=== PATIENT | male | born 1990 | race Caucasian/White ===

== ENCOUNTER 2017-12-08 16:58 | Inpatient (IN) | payer OTHER ==
[~2017-12-08] VITALS: Ht 170.2 cm; Wt 81.6 kg
--- NOTE | 2017-12-08 16:58 | NUR ---
PT BIBS BLS TO BED 5
[2017-12-08 17:00] VITALS: BP 114/69
--- NOTE | 2017-12-08 17:10 | NUR ---
PER TAWER, PATIENT HITTING HEAD TO THE BATHROOM WALL TO HURT HIMSELF AND HEARING VOICES TO HURT HIMSELF TO BANG HEAD ON THE WALL. ABRASION TO OCCIPAL NO BLEEDING,ABRASION TO RT.UPPER EYEBROW. PATIENT CAME IN 4 POINTS RESTRAINTS IN ER. PATIENT CALM AND COOPERATIVE. RESTRAINTS TAKEN OUT. PER PATIENT,HE IS GETTING ATTENTION FROM GOD BECAUSE HE IS NOT TOLERABLE AT THIS TIME. HEARING VOICES IN TV THAT PEOPLE TALKING TO HIM IN A SEXUAL WAY. STOPPED TAKING HALDOL BECAUSE GIVES HIM NIGHTMARE. HX: SCHIZOPHRENIA. FITO LARIOS PLACED PATIENT ON 5150 HOLD ,DTS,DTO; WAS PLACED ON 5150 BY FITO LARIOS
--- NOTE | 2017-12-08 17:40 | NUR ---
PT'S MOTHER AT BEDSIDE, PT CALM COOPERATIVE, NO AGGRESSIVE BEHAVIOUR NOTED AT THIS TIME. TECH GUERRERO AT BEDSIDE, FOUR POINT RESTRAINT WAS TAKEN OFF PER WOUND CARE PHYSICIAN OMA, WILL CONTINUE TO MONITOR.
[2017-12-08 17:43] LABS: BASOPHILS % (AUTO) 0.7 % (0.0-2.0); EOSINOPHILS # (AUTO) 0.1 K/uL (0-0.4); EOSINOPHILS % (AUTO) 1.1 % (0.0-4.0); HEMOGLOBIN 14.5 g/dL (12.0-18.0); LYMPHOCYTES # (AUTO) 1.2 K/uL (2.0-11.5); LYMPHOCYTES % (AUTO) 21.5 % (20.5-51.1); MEAN CORPUSCULAR HEMOGLOBIN 31 pg (27-31); MEAN CORPUSCULAR HGB CONC 35 g/dL (33-37); MEAN CORPUSCULAR VOLUME 90.1 fL (80-94); MONOCYTES # (AUTO) 0.5 K/uL (0.8-1.0); MONOCYTES % (AUTO) 8.6 % (1.7-9.3); NEUTROPHILS # (AUTO) 3.9 K/uL (1.8-7.7); NEUTROPHILS % (AUTO) 68.1 % (42.2-75.2); PLATELET COUNT (AUTO) 213 K/uL (140-450); RED BLOOD CELL COUNT(AUTO) 4.66 MIL/uL (4.20-6.10); RED CELL DISTRIBUTION WIDTH 13.4 % (11.6-13.7); WHITE BLOOD COUNT (AUTO) 5.7 K/uL (4.8-10.8)
--- NOTE | 2017-12-08 17:54 | NUR ---
TELEPSYCH CONSULT REQUEST SUBMITTED ONLINE FOR PT
[2017-12-08 17:57] LABS: ANION GAP 11.5 (8-16); CARBON DIOXIDE 25.3 mmol/L (21-32); CREATININE 0.9 mg/dL (0.7-1.3); POTASSIUM 3.8 mmol/L (3.5-5.1)
[2017-12-08 18:01] LABS: SALICYLATE < 2.8 mg/dL (2.8-20.0)
[2017-12-08 18:04] LABS: ALBUMIN 3.7 g/dL (3.4-5.0); TOTAL BILIRUBIN 0.3 mg/dL (0.0-1.0)
--- NOTE | 2017-12-08 18:05 | NUR ---
AAO COOPERATIVE PT TAKEN OFF THE UNIT VIA GURNEY BY ANDRE MORALES FOR CT OF THE HEAD, PT'S MOTHER REMAIN ON BED 5.
[2017-12-08 18:11] LABS: CREATINE KINASE MB 0.9 ng/mL (0-3.6)
--- NOTE | 2017-12-08 18:12 | NUR ---
PT BACK FROM CT, NO AGGRESSIVE BEHAVIOUR NOTED AT THIS TIME, MOTHER AT BEDSIDE, WILL CONTINUE TO MONITOR.
[2017-12-08] MEDS ORDERED: LORazepam 2 MG/ML VIAL IVP PRN (19:00)
--- NOTE | 2017-12-08 19:10 | NUR ---
RECEIVED REPORT FROM KRISTINE FORREST. TRANSFER OF CARE AT THIS TIME.
--- NOTE | 2017-12-08 19:15 | NUR ---
PATIENT RESTING AT THIS TIME. NO SIGNS OF DISTRESS.
[2017-12-08 19:30] LABS: BARBITURATE, URINE NEG. ng/ml (NEG <=200); BENZODIAZEPINE, URINE NEG. ng/mL (NEG <=200); CANNABINOID, URINE NEG. ng/mL (NEG <=50); COCAINE, URINE NEG. ng/mL (NEG <=300); OPIATE, URINE NEG. ng/mL (NEG <=2000); PHENCYCLIDINE SCREEN,URINE NEG. ng/mL (NEG <=25)
--- NOTE | 2017-12-08 19:30 | NUR ---
PT ARRIVED VIA WHEELCHAIR TO UNIT BY ER NURSE EMIR-ADRIANE. PT AOX2-PSYCHOSIS. PT AMBULATORY, ON ROOM AIR WITH IV SITE ON RIGHT AC #20G-SL. PT HAS MULTIPLE HEMATOMAS ON HEAD DUE TO HITTING SELF AND BANGING HEAD ON HOME BED FRAME ACCORDING TO MOTHER IVORY BAKER. LEFT INDEX FINGER HAS BLOODY BANDAID. BITE HEARD ON FA. BOTH HANDS ARE RED-IRRITATED. VITAL SIGNS TAKEN. NO S/S OF RESPIRATORY DISTRESS OR DISCOMFORT NOTED AT THIS TIME. MRSA SWAB COLLECTED. PT TOLERATED WELL. DISCUSSED PLAN OF CARE WITH MOTHER. MOTHER STATED PT HAS NOT BEEN TAKING MEDICATIONS AND WOULD LIKE HER SON TO BE PLACED IN A PSYCH FACILITY. PT IS NOT ALLOWED TO LEAVE HOSPITAL BY HIMSELF-PT WILL GET LOST! BED IN LOWEST POSITION, BED BREAKS ON, BOTH SIDE RAILS UP AND [address] WILL CONTINUE TO MONITOR.
--- NOTE | 2017-12-08 19:30 | NUR ---
Patient will be admitted to care of DR. PEREZ. Admited to M/S. Will go to room 109A. Belongings list completed. Report to DERECK FORREST.
[2017-12-08 20:00] VITALS: BP 98/61
--- NOTE | 2017-12-08 20:00 | NUR ---
PT REQUESTING SANDWICH AND WAS GIVEN ALONG WITH JUICE AND CHOCOLATE PUDDING. PT ATE 100% OF MEAL. NO S/S OF RESPIRATORY DISTRESS OR DISCOMFORT NOTED AT THIS TIME. WILL CONTINUE TO MONITOR.
--- NOTE | 2017-12-08 22:00 | NUR ---
PT RESTING IN BED. NO S/S OF RESPIRATORY DISTRESS OR DISCOMFORT NOTED AT THIS TIME. WILL CONTINUE TO MONITOR.
--- NOTE | 2017-12-08 22:34 | NUR ---
DR. KIM HAS BEEN SPEAKING TO PT VIA VIDEO MONITOR STATING PT IS PSYCHOTIC AT THE MOMENT "SPEAKING TO GOD" DURING EVALUATION. MD WOULD LIKE EKG DONE AND EVALUATED BEFORE RX HALDOL IS GIVEN. ALSO STATED "ONCE PT IS MEDICALLY CLEARED, PT IS TO BE TRANSFERRED TO PSYCH FACILITY."
--- NOTE | 2017-12-08 23:00 | NUR ---
SPOKE WITH DR. KIM, DAMON-PSYCH ENOLOGIST SPOKE WITH PT VIA VIDEO MONITOR. PT DID NOT LIKE VIDEO MONITOR PER ANN POST. DR ORDERED EKG BEFORE FIRST DOSE OF HALDOL IS TO BE GIVEN. EKG IS TO BE ORDERED BY DR. PEREZ BECAUSE DR. KIM IS UNABLE TO SEE RESULTS.
[2017-12-09] VITALS: BP 103/52
--- NOTE | 2017-12-09 | NUR ---
VITAL SIGNS TAKEN AND TOLERATED WELL. NO S/S OF RESPIRATORY DISTRESS OR DISCOMFORT NOTED AT THIS TIME. WILL CONTINUE TO MONITOR.
--- NOTE | 2017-12-09 00:20 | NUR ---
SPOKE WITH EHAVEN LAWLER ON-CALL FOR DR. PEREZ. ORDERED EKG REQUESTED BY DR. KIM-PSYCH WELL TESTING OPERATOR.
--- NOTE | 2017-12-09 01:08 | NUR ---
AWAKE AND ALERT RESPONSIVE PATIENT REFUSED EKG PROCEDURE LAURIE DOMINGUEZP AND Mera BROWN RCP AT BEDSIDE JANETH/RN AND RYDER/KNIT TUBING DYER NOTIFIED
--- NOTE | 2017-12-09 02:00 | NUR ---
PT RESTING IN BED. NO S/S OF RESPIRATORY DISTRESS OR DISCOMFORT NOTED AT THIS TIME. WILL CONTINUE TO MONITOR.
--- NOTE | 2017-12-09 03:05 | NUR ---
PT USED RESTROOM TO URINATE, WASHED HANDS FOR SOME TIME AND RETURNED TO BED. NO S/S OF RESPIRATORY DISTRESS OR DISCOMFORT NOTED AT THIS TIME. WILL CONTINUE TO MONITOR.
--- NOTE | 2017-12-09 05:00 | NUR ---
PT SLEEPING IN BED. NO S/S OF RESPIRATORY DISTRESS OR DISCOMFORT NOTED AT THIS TIME. WILL CONTINUE TO MONITOR.
--- NOTE | 2017-12-09 06:00 | NUR ---
PT SLEEPING IN BED. ENDORSED PT CARE TO DAY SHIFT NURSE STEW-ADRIANE FOR CONTINUITY OF CARE.
--- NOTE | 2017-12-09 07:21 | NUR ---
ENDORSED PT CARE TO DAY SHIFT NURSE GERMAINE-RN FOR CONTINUITY OF CARE.
--- NOTE | 2017-12-09 07:23 | NUR ---
RECEIVED BEDSIDE REPORT FROM NIGHT NURSE. PT AWAKE,ALERT, ORIENTED X 4, AMBULATORY. MS PT. DX OF 5150 SITTER AT BEDSIDE. WITH IV ACCESS ON R AC, G 20, PATENT, WITH SALINE LOCK, CAPPED. REDNESS ON HIS HANDS.PT STATES HE ALWAYS HAD THE REDNESS. BITE HEARD ON UPPER EXTREMITIES. DISCOLORATION ON LEFT EYEBROW. BRUISES ON MULTIPE AREAS ON THE HEAD.L INDEX FINGER W/ BANDAID ON.BED AT LOW POSITION. WILL CONTINUE TO MONITOR.
[2017-12-09 08:00] VITALS: BP 119/84
--- NOTE | 2017-12-09 08:00 | NUR ---
PT REFUSES TO EAT BREAKFAST. REQUESTED TO HAVE TRAY TO BE TAKEN OUT.
--- NOTE | 2017-12-09 10:00 | NUR ---
FREQUENT HOURLY ROUNDING DONE, PT ASLEEP ON BED. PT IN STABLE CONDITION, NO RESPIRATORY DISTRESS. NOR ANY CHANGE OF CONDITION NOTED AT THIS TIME.
--- NOTE | 2017-12-09 10:15 | NUR ---
PT REQUESTS TO GO HOME, STATES HE FEELS BETTER. CALLED MOM, IVORY AND SAID SHE WILL BE HERE IN A FEW MINS. PSYCHE CONSULT STILL TO CONTINUE 5150 HOLD. PT CAN'T GO HOME AT THIS TIME
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
--- NOTE | 2017-12-09 12:44 | NUR ---
FAMILY LEFT. PATIENT STANDING AGAINST THE WALL. NOT TALKING, JUST A BLANK STARE. 1:1 SITTER AT BEDSIDE. WILL CONTINUE TO MONITOR THE PATIENT
--- NOTE | 2017-12-09 14:50 | NUR ---
DR. SCHULER IN TO SEE PT. PT MEETS 5150 HOLD AT THIS TIME DUE TO PT'S DANGER TO SELF AND GRAVELY DISABLED.
[2017-12-09 16:00] VITALS: BP 116/63
--- NOTE | 2017-12-09 16:30 | NUR ---
PT AWAKE IN STABLE CONDITION. NO COMPLAINTS AT THIS TIME. NO CHANGES OF CONDITION NOTED.
--- NOTE | 2017-12-09 18:30 | NUR ---
FAMILY AT BEDSIDE. PATIENT SITTING IN BED. NO SIGNS OF DISTRESS. WILL CONTINUE TO MONITOR. 1:1 SITTER
--- NOTE | 2017-12-09 19:10 | NUR ---
ENDORSED BEDSIDE REPORT TO CHARGE NURSE NURSE. PT IN STABLE CONDITION
--- NOTE | 2017-12-09 19:11 | NUR ---
RECEIVED REPORT FROM DAY SHIFT NURSE GERMAINE-RN AT BEDSIDE. PT AOX4-PSYCHOSIS WITH PARENTS IN ROOM. PT AMBULATORY, ON ROOM AIR WITH IV SITE ON RIGHT AC #20G-SL. PT HAS MULTIPLE HEMATOMAS ON HEAD DUE TO HITTING SELF AND BANGING HEAD ON HOME BED FRAME ACCORDING TO MOTHER IVORY BAKER. LEFT INDEX FINGER HAS BLOODY BANDAID. BITE HEARD ON FA. BOTH HANDS ARE RED-IRRITATED. DISCUSSED PLAN OF CARE AND PT STATED HE WANTED TO GO HOME. EXPLAINED HE IS ON A 5150 HOLD HOWEVER HE INSISTS ON GOING HOME. PARENTS ALSO TRIED TO EXPLAIN TO PT 5150 HOLD. NO S/S OF RESPIRATORY DISTRESS OR DISCOMFORT NOTED AT THIS TIME. BED IN LOWEST POSITION, BED BREAKS ON, BOTH SIDE RAILS UP AND [address] WILL CONTINUE TO MONITOR.
[2017-12-09 20:00] VITALS: BP 106/70
--- NOTE | 2017-12-09 20:00 | NUR ---
VITAL SIGNS TAKEN AND TOLERATED WELL. NO S/S OF RESPIRATORY DISTRESS OR DISCOMFORT NOTED AT THIS TIME. WILL CONTINUE TO MONITOR.
--- NOTE | 2017-12-09 22:00 | NUR ---
PT RESTING IN BED. NO S/S OF RESPIRATORY DISTRESS OR DISCOMFORT NOTED AT THIS TIME. WILL CONTINUE TO MONITOR.
--- NOTE | 2017-12-10 | NUR ---
VITAL SIGNS TAKEN AND TOLERATED WELL. NO S/S OF RESPIRATORY DISTRESS OR DISCOMFORT NOTED AT THIS TIME. WILL CONTINUE TO MONITOR.
--- NOTE | 2017-12-10 02:00 | NUR ---
PT RESTING IN BED. NO S/S OF RESPIRATORY DISTRESS OR DISCOMFORT NOTED AT THIS TIME. WILL CONTINUE TO MONITOR.
--- NOTE | 2017-12-10 04:00 | NUR ---
PT CONTINUES TO REST IN BED. NO S/S OF RESPIRATORY DISTRESS OR DISCOMFORT NOTED AT THIS TIME. WILL CONTINUE TO MONITOR.
--- NOTE | 2017-12-10 06:00 | NUR ---
PT RESTING IN BED. NO S/S OF RESPIRATORY DISTRESS OR DISCOMFORT NOTED AT THIS TIME. WILL CONTINUE TO MONITOR.
--- NOTE | 2017-12-10 07:09 | NUR ---
ASSUMED CONTINUITY OF CARE. NO SIGNS AND SYMPTOMS OF ACUTE DISTRESS NOTICED. INITIAL ASSESSMENT DONE. CALM, QUIET AND COOPERATIVE. NO SUICIDAL THOUGHTS OBSERVED. KEEP ENVIRONMENT SAFE. CLOSELY MONITORED BY FÁTIMA SCHAFFER 1:1 FOR SUICIDAL PREVENTION.
--- NOTE | 2017-12-10 07:09 | NUR ---
ENDORSED PT CARE TO DAY SHIFT NURSE KALPESH FOR CONTINUITY OF CARE.
--- NOTE | 2017-12-10 07:30 | NUR ---
Patient's Plan of Care was discussed and reviewed with HUMAN FACTORS SPECIALIST: JOSE.
[2017-12-10 08:00] VITALS: BP 126/75
[2017-12-10 09:00] VITALS: BP 104/55
--- NOTE | 2017-12-10 09:09 | NUR ---
PATIENT HAS BEEN SCREENED AND CATEGORIZED LOW NUTRITION RISK. PATIENT WILL BE SEEN WITHIN 7 DAYS OF ADMISSION. 12/15/[address]
[2017-12-10] MEDS ORDERED: ATI2I IVP (09:16)
--- NOTE | 2017-12-10 12:00 | NUR ---
DR. PEREZ CAME AND SEEN PT..
--- NOTE | 2017-12-10 14:21 | NUR ---
CM NOTES INITIAL REVIEW FAXED TO [facility] [phone] [place] # [phone]
--- NOTE | 2017-12-10 16:15 | NUR ---
QUIET, AWAKE, RESTING ON BED COMFORTABLY. NO UNTOWARD BEHAVIOR SEEN. CONTINUE MONITORING 1:1.
--- NOTE | 2017-12-10 19:10 | NUR ---
BEDSIDE REPORT GIVEN TO YOGI HERNÁNDEZ. IN STABLE CONDITION. CLOSELY MONITORED BY A SITTER FOR SUICIDAL PREVENTION. PT. FAMILY MEMBERS ON BEDSIDE.
--- NOTE | 2017-12-10 19:10 | NUR ---
RECEIVED REPORT FROM DAY SHIFT NURSE, KIRSTEN, AT PT BEDSIDE. PT IN STABLE CONDITION. PT HAS SITTER IN ROOM DUE TO SUICIDAL IDEATION AND 5150 HOLD. PT LAYING IN BED AWAKE AND CALM. IV ACCESS R AC. IV IS PATENT AND INTACT. PT HAS NO C/O PAIN AT THIS TIME. BED IS LOCKED, LOW POSITION WITH SIDE RAILS UP X2. WILL CONTINUE TO MONITOR PT.
--- NOTE | 2017-12-10 19:30 | NUR ---
FAMILY HERE TO SEE PT, SPOKE WITH PT BROTHER WOULD LIKE TO BE NOTIFIED OF ANY CHANGES REGARDING PT. REQUESTING EITHER PT MOTHER GALLO FULLER OR HIMSELF JARETH CORDOVA BE CONTACTED [phone] WITH UPDATES.
--- NOTE | 2017-12-10 21:11 | NUR ---
PT LAYING IN BED QUIETLY. NO SIGNS OR SYMPTOMS OF DISTRESS. SITTER IN ROOM. WILL CONTINUE TO MONITOR.
--- NOTE | 2017-12-10 23:08 | NUR ---
NO CHNAGE IN CONDITION. PT STATES HE IS FEELING OKAY. SITTER IN ROOM. WILL CONTINUE TO MONITOR.
[2017-12-11] VITALS: BP 118/71
--- NOTE | 2017-12-11 01:03 | NUR ---
PT AWAKE, LAYING IN BED, RESTLESS AND MUMBLING TO SELF. NO SIGNS OR SYMPTOMS OF DISTRESS. SITTER IN ROOM. WILL CONTINUE TO MONITOR.
--- NOTE | 2017-12-11 02:59 | NUR ---
NO CHANGE IN CONDITION. SITTER IN ROOM. WILL CONTINUE TO MONITOR.
--- NOTE | 2017-12-11 04:48 | NUR ---
NO CHANGE IN CONDITION. PT AWAKE IN BED. SITTER IN ROOM. WILL CONTINUE TO MONITOR.
--- NOTE | 2017-12-11 07:06 | NUR ---
ASSUMED CONTINUITY OF CARE. NO SIGNS AND SYMPTOMS OF ACUTE DISTRESS NOTED. INITIAL ASSESSMENT DONE. CALM, QUIET, AND COOPERATIVE. NO SUICIDAL THOUGHTS OBSERVED. KEEP ENVIRONMENT SAFE. CLOSELY MONITORED BY FÁTIMA DOMINIQUE FOR SUICIDAL PREVENTION.
--- NOTE | 2017-12-11 07:06 | NUR ---
PT REPORT GIVEN TO NURSEKIRSTEN FOR CONTINUITY OF CARE. PT IN STABLE CONDITION.
--- NOTE | 2017-12-11 07:30 | NUR ---
Patient's Plan of Care was discussed and reviewed with GRAPHIC ART DESIGNER: JOSE.
[2017-12-11 08:00] VITALS: BP 124/73
[2017-12-11 12:00] VITALS: BP 123/73
--- NOTE | 2017-12-11 15:10 | NUR ---
PT. MOTHER AND PT. BROTHER -JARETH CAME TO VISIT PT.. PT. CALM, QUIET AND COMMUNICATING VERY WELL. ASKED PT. BROTHER -JARETH ABOUT PT. HOME MEDICATION LIST. PER PT. BROTHER INDER, HE WILL BRING MEDICATION CONTAINER OR LIST TOMORROW 12/12/2017. INFORMED CHARGE NURSE THANG HERNÁNDEZ.
--- NOTE | 2017-12-11 15:11 | NUR ---
FAXED CLINICAL PACKET TO [facility] [phone] MAKAYLA # [phone] Addendum: 12/11/17 at 1521 by Luda Ortega CONCURRENT REVIEW FAXED TO [facility] [phone] [place] # [phone]
--- NOTE | 2017-12-11 16:32 | NUR ---
PT. BROTHER INDER REQUESTED TO HAVE HIS BROTHER GO TO SHOWER ROOM TO TAKE SHOWER. ASKED PT. BROTHER INDER, WE'LL LET PT. GO TO SHOWER ROOM IF HE (JARETH) WILL GO WITH THE PT. INSIDE SHOWER ROOM FOR SUICIDAL PREVENTION, WHICH PT. BROTHER INDER AGREED. INFORMED CHARGE NURSE THANG HERNÁNDEZ.
--- NOTE | 2017-12-11 17:13 | NUR ---
PT. BACK FROM SHOWER ROOM TOGETHER WITH PT. BROTHER INDER. PT. CALM, QUIET AND COOPERATIVE. NO UNTOWARD BEHAVIOR OR BODY INJURY OBSERVED.
--- NOTE | 2017-12-11 19:07 | NUR ---
RECEIVED BEDSIDE REPORT FROM SHARON CURTIS. PT IN BED FAMILY AT BEDSIDE. NO SIGNS OF ACUTE DISTRESS ON RA. IV IN RIGHT AC 20 G, SL, FLUSHED WITH 10 ML NA, DRESSING RED WITH OLD BLOOD, ASKED TO BE CHANGED PT STATED "NO ITS OKAY". EXPLAINED PLAN OF CARE. PT ON 1:1 SITTER. WILL CONTINUE TO MONITOR.
--- NOTE | 2017-12-11 19:07 | NUR ---
BEDSIDE REPORT GIVEN TO MICHAEL HERNÁNDEZ. IN STABLE CONDITION. PT. FATHER AND PT. MOTHER ON BEDSIDE.
--- NOTE | 2017-12-11 22:00 | NUR ---
PT AMBULATED TO BATHROOM, STEADY GAIT, WILL CONTINUE TO MONITOR.
--- NOTE | 2017-12-11 23:20 | NUR ---
PT RESTING IN BED NO SIGNS OF ACUTE DISTRESS, CONTINUE WITH 1:1 SITTER, WILL CONTINUE TO MONITOR.
[2017-12-12] VITALS: BP 124/84
--- NOTE | 2017-12-12 | NUR ---
SUPPLY CHAIN CONSULTANT STATED PT IS HITTING HIMSELF, WHEN ASKED PT IF WANTING TO HURT HIMSELF THE PT STATED "NO". ASKED IF FEELING ANXIOUS AND NEEDED MEDICATION PT STATED "NO IM FINE". PT IS NOT CURRENTLY HURTING HIMSELF, WILL CONTINUE TO MONITOR.
--- NOTE | 2017-12-12 02:00 | NUR ---
PT ASLEEP IN BED, NO SIGNS OF ACUTE DISTRESS, CONTINUE WITH 1:1 SITTER. WILL CONTINUE TO MONITOR.
--- NOTE | 2017-12-12 03:16 | NUR ---
PT ASLEEP IN BED NO SIGNS OF DISTRESS, CALL LIGHT WITHIN REACH.
--- NOTE | 2017-12-12 05:50 | NUR ---
PT ASLEEP IN BED, NO SIGNS OF DISTRESS, CALL LIGHT WITHIN REACH, WILL CONTINUE TO MONITOR. Addendum: 12/12/17 at 0552 by Demetria Mae RN CONTINUE WITH 1:1 SITTER, NO CALL LIGHT IN ROOM.
--- NOTE | 2017-12-12 07:11 | NUR ---
RECEIVED BEDSIDE REPORT FROM PM SHIFT NURSE. PT ASLEEP IN BED, RESPIRATIONS EVEN & UNLABORED, FLACC 0. 1:1 SITTER AT BEDSIDE FOR SUICIDE PRECAUTIONS.
--- NOTE | 2017-12-12 07:34 | NUR ---
ENDORSED PT TO DAY SHIFT NURSE, PT STABLE.
[2017-12-12 08:00] VITALS: BP 128/78
--- NOTE | 2017-12-12 08:10 | NUR ---
PT SITTING UP IN BED, ASKING NURSE TO REMOVE RT IV LINE BECAUSE HE WANTS TO LEAVE THE HOSPITAL. EXPLAINED TO PT THAT IV SITE IS NEEDED FOR MED PRN, & THAT PHYSICIAN/PSYCHIATRIST WILL NEED TO ASSESS HIM IF HE IS OK FOR DISCHARGE. PT GETTING ANGRY WITH AGGRESSIVE TONE OF VOICE, STATING HE DOESN'T LIKE TO BE IN THE HOSPITAL & THAT HE'D RATHER STAY HOME. PT ASKED IF HE HAS THOUGHTS OF HARMING HIMSELF, PT STATES "I DON'T WANT TO TALK ABOUT IT RIGHT NOW." EXPLAINED THAT ATTENDING DR WILL BE COMING TO SEE HIM TODAY & WILL DISCUSS DISCHARGE PLANS. PT VERBALIZED UNDERSTANDING & ABLE TO CALM DOWN. PT LYING IN BED WITH BLANKET OVER HIS HEAD. 1:1 SITTER AT BEDSIDE FOR CONTINUOUS MONITORING.
--- NOTE | 2017-12-12 09:06 | NUR ---
PT ASKED TO USE PHONE TO CALL HIS BANK & TRANSFER MONEY TO HIS CHECKING ACCOUNT. PT ASKED NURSE TO DIAL [phone] FOR HIM D/T POOR VISION. NUMBER DIALED TO PHONE & GIVEN TO PT. PT ABLE TO COMPLETE PHONE CALL WITH NURSE AT BEDSIDE WITH PT AGREEMENT. Addendum: 12/12/17 at 0910 by Ellen Wu RN WRONG PATIENT. DISCARD PREVIOUS NOTE.
--- NOTE | 2017-12-12 09:21 | NUR ---
Packets faxed to the following facilities: [facility] Lili Saucedo
--- NOTE | 2017-12-12 09:35 | NUR ---
Female visitor arrived to see pt. Pt lying in bed, awake, interacting appropriately. Sitter at bedside.
--- NOTE | 2017-12-12 09:42 | NUR ---
Dr Yan came in to assess pt.
--- NOTE | 2017-12-12 10:28 | NUR ---
Pt's brother Jared came in to visit pt. Med list provided to nurse. Paged Dr. Yan for med reconciliation.
--- NOTE | 2017-12-12 10:29 | NUR ---
Dr Yan called back & notified of pt's home meds of Haldol 5mg 3tabs po qpm & Quetiapine 400mg 1tab po bid. Per Dr Yan, continue home meds in hospital. Orders noted. Brother Jared at bedside aware & agree with POC.
--- NOTE | 2017-12-12 10:41 | NUR ---
Brother Jared left room at this time with pt's home meds. Pt lying quietly in bed, sister at bedside.
--- NOTE | 2017-12-12 10:47 | NUR ---
CM NOTE CONCURRENT REVIEW FAXED TO [facility] [phone] [place] # [phone].
--- NOTE | 2017-12-12 11:05 | NUR ---
Visitors left room at this time. Pt sitting quietly on bed.
--- NOTE | 2017-12-12 11:14 | NUR ---
Pt sitting up in bed, mumbling. Asked pt if he needs anything, pt replies "No". Pt continues to mumble quietly.
--- NOTE | 2017-12-12 11:19 | NUR ---
[facility] aware patient is still in unit. will continue to look for placement throughout shift. will update unit when new information has been received.
--- NOTE | 2017-12-12 12:10 | NUR ---
Pt observed to be washing hands excessively. Pt went back to bed after 10min of hand washing. Lunch tray served to pt, pt states "thank you." Sitter at bedside for continuous monitoring.
--- NOTE | 2017-12-12 13:52 | NUR ---
Pt lying quietly in bed, awake, denies any discomfort. Sitter at bedside for continuous monitoring. Suicide precautions in place.
--- NOTE | 2017-12-12 14:46 | NUR ---
Pt excessively washing his hands at the sink in room, talking to someone who isn't there. Pt sat down in bed after 5min of handwashing. Continues to talk quietly by himself.
--- NOTE | 2017-12-12 15:14 | NUR ---
Pt suddenly yelled "They're murdering me with sound!" Asked pt what he means. Pt states he wants his mom to pick him up. Explained to pt that psychiatrist will be coming in to see him. Pt calmed down & says he will stay quiet.
[2017-12-12 16:00] VITALS: BP 126/73
--- NOTE | 2017-12-12 16:49 | NUR ---
Due meds given at this time. Pt took meds well, calm & cooperative. Dr Murdock came in to assess pt.
[2017-12-12] MEDS ORDERED: HALOPERIDOL 5 MG TAB PO SCH (17:00)
[2017-12-12] MEDS ORDERED: HAL5 PO (17:15)
[2017-12-12] MEDS ORDERED: QUET400T PO (17:18)
--- NOTE | 2017-12-12 17:39 | NUR ---
Called Zandra mother @ [phone] re: order to discharge pt home. Called x3, no answer. Left voicemail.
--- NOTE | 2017-12-12 18:00 | NUR ---
Zandra, pt's mother, came in to see pt. Notified of discharge order per Dr Yan & Dr Murdock. Informed family to f/u with pt's psychiatrist. Discharge instructions provided to pt & mother. Both verbalized understanding & agree with plan of care. Per mother, she will go home, which is 10min away, to get clothes & shoes for the pt, then will come back to take pt home. Security brought in pt's admission belongings (shirt, pants, slippers).
--- NOTE | 2017-12-12 18:20 | NUR ---
Pt's mother left at this time, states she will pickle maker clothes from home, then will come back with to take pt home. Pt sitting quietly on bed. Right AC IV line discontinued & covered with dry dressing. No bleeding present. Pt's skin intact, no discoloration to head/forehead, both hands slightly pink d/t excessive handwashing, left inner forearm clear & intact. Sitter remains at bedside for continuous monitoring.
--- NOTE | 2017-12-12 18:58 | NUR ---
Pt's mother came back & provided clothes for pt. Pt able to change from hospital gown to personal clothes independently. Name band removed. Pt & mother ambulated out of unit at this time, condition is stable. All belongings with pt upon discharge.
--- NOTE | 2017-12-12 19:25 | NUR ---
No update from contacted facilities at this time. will continue to look for placement.
[2017-12-12] MEDS ORDERED: QUEtiapine FUMARATE 100 MG TAB PO SCH (21:00)
== END 2017-12-12 19:00 | disposition home or self-care (01) | DRG 115 ==
LOC: MED 16:58 → MTU 19:02
PROVIDERS: ADMIT Hospitalist; ATTEND Hospitalist
DX: S09.90XA Unspecified injury of head, initial encounter (principal); F20.9 Schizophrenia, unspecified; R45.851 Suicidal ideations; F31.9 Bipolar disorder, unspecified; W22.01XA Walked into wall, initial encounter; Y93.89 Activity, other specified; Y92.89 Other specified places as the place of occurrence of the external cause; Y99.8 Other external cause status
CPT/HCPCS: 36415; 70450; 80053; 80305; 82550; 82553; 84484; 85025; 87081; 99285; G0480; G0482; J1630

== ENCOUNTER 2019-03-19 04:07 | Emergency (ER) | payer OTHER ==
[~2019-03-19] VITALS: Ht 177.8 cm; Wt 86.2 kg
[~2019-03-19 04:07] MED LIST: HAL5 PO; QUET400T PO
--- NOTE | 2019-03-19 04:12 | NUR ---
PT TAKEN TO BED 11
[2019-03-19 04:19] VITALS: BP 136/66
--- NOTE | 2019-03-19 04:20 | NUR ---
28 Y/O MALE BIB MOTHER TOOK EXTRA DOSE OF RISPERIDONE 3MG AT 0230 THIS MORNING. A/OX4; FOLLOWS COMMANDS; PERRLA +3. NO OBVIOUS SIGNS OF EPS. DENIES ANY CHEST PAIN OR SOB. RR: UNLABORED AND SYMMETRICAL 96% ON RA; RR 15. ENDORSED AUDITORY AND VISUAL HALLUCINATIONS. DENIES COMMAND/HARMFUL HALLUCINATIONS. PER PATIENT " I TOOK THEM BECAUSE THE BLACK TOLD ME TO, BUT I DON'T WANT TO HARM MYSELF". ERMD MADE AWARE OF STATUS. SIDE RAILSX1. WILL CONTINUE TO MONITOR. PMH:DENIES RX:RISPERIDONE NKDA
--- NOTE | 2019-03-19 04:40 | NUR ---
Dr. Patel examining patient.
[2019-03-19] MEDS ORDERED: LORazepam 2 MG/ML VIAL IM ONE (04:50)
--- NOTE | 2019-03-19 04:58 | NUR ---
PULLED 2MG/1ML OF ATIVAN FROM OMNICELL. SHAJI 1MG/0.5ML OF ATIVAN AND VERIFIED WITH ADRIANE DENNY. ADMINISTERED 1MG/0.5ML. WILL CONTINUE TO MONITOR
[2019-03-19] MEDS ORDERED: NACL 0.9% 1,000 ML IV ONE (05:35)
--- NOTE | 2019-03-19 06:32 | NUR ---
Dr. Patel re-examining patient.
[2019-03-19 07:01] VITALS: BP 127/68
--- NOTE | 2019-03-19 07:01 | NUR ---
Patient discharged with v/s stable. Written and verbal after care instructions given and explained. Patient verbalized understanding. Ambulatory with steady gait. All questions addressed prior to discharge. Advised to follow up with PMD.
== END 2019-03-19 07:01 | disposition home or self-care (01) ==
LOC: MED 04:07
DX: T43.594A Poisoning by other antipsychotics and neuroleptics, undetermined, initial encounter (principal); F29 Unspecified psychosis not due to a substance or known physiological condition; F41.9 Anxiety disorder, unspecified; F20.9 Schizophrenia, unspecified; Z79.899 Other long term (current) drug therapy; Y92.89 Other specified places as the place of occurrence of the external cause
CPT/HCPCS: 93005; 96372; 99284; J2060; J7030